=== PATIENT | male | born 2000 | race Caucasian/White ===

== ENCOUNTER 2021-09-02 22:31 | Emergency (ER) | payer SELFPAY ==
[~2021-09-02] VITALS: Ht 162.6 cm; Wt 63.0 kg
[2021-09-02] MEDS ORDERED: ACETAMINOPHEN 325MG TABLET PO ONE (23:00)
[2021-09-03 01:45] VITALS: BP 109/63
== END 2021-09-03 02:00 | disposition home or self-care (01) ==
LOC: ER 22:31
DX: M25.562 Pain in left knee (principal); M25.561 Pain in right knee; M79.662 Pain in left lower leg; M25.572 Pain in left ankle and joints of left foot; R03.0 Elevated blood-pressure reading, without diagnosis of hypertension; F84.0 Autistic disorder; V49.59XA Passenger injured in collision with other motor vehicles in traffic accident, initial encounter; Y93.89 Activity, other specified; Y92.488 Other paved roadways as the place of occurrence of the external cause; F17.210 Nicotine dependence, cigarettes, uncomplicated; Z71.6 Tobacco abuse counseling
CPT/HCPCS: 73562; 73590; 73610; 99284; 99406